=== PATIENT | female | born 1965 | race Caucasian/White ===

== ENCOUNTER 2023-04-29 15:00 | Emergency (ER) | payer OTHER, SELFPAY ==
--- NOTE | 2023-04-29 15:10 | ED.URI ---
HPI - URI/Sore Throat General Chief Complaint: Upper Respiratory Infection Stated Complaint: sorethroat Time Seen by Provider: 04/29/23 15:11 Source: patient Mode of arrival: ambulatory Limitations: no limitations Review of Systems Review of Systems: All systems reviewed & are unremarkable except as noted in HPI and below Constitutional: Constitutional: Denies body ache(s), Denies chills, Denies fatigue, Denies fever(s), Denies headache(s), Denies malaise and Denies weakness Eyes: Eyes: Denies blurry vision, Denies itchy eyes and Denies loss of vision ENT: Denies otalgia, Denies headache(s), Reports nasal congestion, Denies sinus pain and Denies sore throat Cardiovascular: Cardiovascular: Denies chest pain, Denies irregular heart rhythm and Denies dyspnea Respiratory: Respiratory: Reports cough and Denies dyspnea Gastrointestinal: Gastrointestinal: Denies abdominal pain, Denies diarrhea, Denies nausea and Denies vomiting Musculoskeletal: Musculoskeletal: Denies back pain, Denies myalgias and Denies arthralgias Integumentary/Breasts: Skin/Breast: Denies pruritus and Denies rash Neurologic: Denies headache(s), Denies loss of vision and Denies weakness Psychiatric: Psychiatric: Reports no additional psychiatric complaints Endocrine: Endocrine: Denies fatigue Allergic/Immunologic: Allergic/Immunologic: Denies itchy eyes PMFSH Comments At time of signature, agree with nursing past medical, surgical, social and family history. There is no relevant family history pertinent to the presenting complaint. Exam Const: General: cooperative, healthy appearing, comfortable, no acute distress and well nourished Nutritional Appearance: well nourished Orientation/consciousness: patient oriented x3 Limitations: no limitations HENMT: Head: normal to inspection, normocephalic and atraumatic Ears: hearing grossly normal bilaterally, external ears normal, TM's normal bilaterally, EAC's normal and no periauricular adenopathy Face/Nose/Sinus: Normal external nose present, Abnormal mucous membranes and turbinates present erythematous bilateral and diffuse, normal facial exam, sinuses nontender and face symmetric Face and sinus: normal facial exam, sinuses nontender and face symmetric Mouth: Yes Normal oral and palatal mucosa present, Yes lip normal, Yes tongue normal, Yes Normal salivary glands and ducts present, Yes oropharynx normal and Yes moist mucous membranes Teeth and gingiva: dentition normal Throat: posterior oropharynx normal, tonsils normal and uvula midline Eyes: General: appearance normal, both eyes and all related structures Alignment and Position: alignment normal and position normal Periorbital: periorbital findings normal Eyelids: eyelids normal Pupils: Equal, round and reactive pupils present Neck: Neck: normal visual inspection, full ROM, no lymphadenopathy and supple Chest: Chest palpation & inspection: normal inspection of the chest and normal palpation of entire chest wall Resp: Effort & Inspection: normal respiratory effort and able to speak in complete sentences Auscultation: clear to auscultation bilaterally, no crackles, no rales, no rhonchi and no wheezes Cardio: Rate: regular rate Rhythm: regular rhythm Heart sounds: S1 normal heart sound present and S2 normal heart sound present GI: Inspection: normal to inspection Skin: General skin exam: normal color and no rashes or lesions noted Neuro: General: patient oriented x3 and moves all extremities Cranial nerves: Yes Equal, round and reactive pupils present Speech: normal speech Gait exam (Neuro): Normal gait present Extrem: General: normal to inspection, full ROM and no edema Psych: Appearance: grossly normal and well kempt Mental Status: mental status grossly normal Speech and movement: Normal speech and movement present Affect: normal affect Attitude: cooperative Thought process: Normal thought process present Course Course Emergency Course: Scooby
[2023-04-29 15:15] VITALS: BP 159/72; PULSE 67; RESP 18; TEMP 36.9; O2SAT 98
[2023-04-29 15:18] VITALS: BP 159/72; PULSE 67; RESP 18; TEMP 36.9; O2SAT 98
--- NOTE | 2023-04-29 15:33 | ED.SKABFB ---
HPI - Skin/Abscess/Foreign Bdy General Chief complaint: Skin/Abscess/Foreign Body Stated complaint: sorethroat Time Seen by Provider: 04/29/23 15:11 Source: patient Mode of arrival: ambulatory Limitations: no limitations History of Present Illness HPI narrative: Patient is a 57-year-old female that presents with left ear swelling and redness after tick bite. Patient removed tick on Monday evening and has had in a jar since. Take identified as a female [place]ese dog tick. Patient states wound has been using clear/cold in liquid since. Reports ear has become more swollen and tender along with lymph nodes in neck. Denies any fever, chills, congestion, sore throat, fatigue. Has been washing with soap and water and using Neosporin. Related Data Home Medications Medication Instructions Recorded Confirmed ezetimibe 10 mg tablet 10 mg PO DAILY 04/29/23 04/29/23 lisinopril 2.5 mg tablet 2.5 mg PO DAILY 04/29/23 04/29/23 metoprolol succinate 25 mg 25 mg PO DAILY 04/29/23 04/29/23 tablet,extended release 24 hr rosuvastatin 10 mg tablet 10 mg PO DAILY 04/29/23 04/29/23 Allergies Allergy/AdvReac Type Severity Reaction Status Date / Time morphine AdvReac Itching Verified 04/29/23 15:16 Review of Systems Review of Systems: All systems reviewed & are unremarkable except as noted in HPI and below Constitutional: Constitutional: Denies body ache(s), Denies chills, Denies fatigue, Denies fever(s), Denies headache(s), Denies malaise and Denies weakness Eyes: Eyes: Denies blurry vision, Denies irritation and Denies loss of vision ENT: Reports otalgia, Denies headache(s), Denies nasal discharge, Denies sinus pain and Denies sore throat Comments: Ear swelling and redness Cardiovascular: Cardiovascular: Denies chest pain, Denies irregular heart rhythm and Denies dyspnea Respiratory: Respiratory: Denies dyspnea Gastrointestinal: Gastrointestinal: Denies abdominal pain, Denies melena, Denies hematochezia, Denies diarrhea, Denies nausea and Denies vomiting Musculoskeletal: Musculoskeletal: Denies back pain, Denies myalgias and Denies arthralgias Integumentary/Breasts: Skin/Breast: Denies pruritus, Reports lesions and Denies rash Neurologic: Denies headache(s), Denies loss of vision and Denies weakness Psychiatric: Psychiatric: Reports no additional psychiatric complaints Endocrine: Endocrine: Denies fatigue PMFSH Comments At time of signature, agree with nursing past medical, surgical, social and family history. There is no relevant family history pertinent to the presenting complaint. Exam Const: General: cooperative, healthy appearing, comfortable, no acute distress and well nourished Nutritional Appearance: well nourished Orientation/consciousness: patient oriented x3 Limitations: no limitations HENMT: Head: normal to inspection, normocephalic and atraumatic Ears: hearing grossly normal bilaterally, TM's normal bilaterally, EAC's normal, mastoids normal bilaterally not edematous, nontender and no erythema and external ear abnormal auricular tenderness on the left and diffuse, pain with movement of external ear on the left and diffuse and other (Erythema and swelling. Lesion noted with drainage) Outer ear/TM images: 1. Tick bite location. Clear to yellow watery drainage noted. No necrotic tissue present. Entire pinna red and swollen. Face/Nose/Sinus: Normal external nose present, normal facial exam and face symmetric Face and sinus: normal facial exam and face symmetric Mouth: Yes lip normal Eyes: General: appearance normal, both eyes and all related structures Alignment and Position: alignment normal and position normal Periorbital: periorbital findings normal Eyelids: eyelids normal Pupils: Equal, round and reactive pupils present EOM: EOMs intact bilaterally Neck: Neck: normal visual inspection, full ROM and supple Chest: Chest palpation & inspection: normal inspection of the chest Resp: Effort
== END 2023-04-29 16:00 | disposition home or self-care (01) ==
PROVIDERS: Emergency Provider Nurse Practitioner Family
DX: S00.462A Insect bite (nonvenomous) of left ear, initial encounter (principal); W57.XXXA Bitten or stung by nonvenomous insect and other nonvenomous arthropods, initial encounter; E78.00 Pure hypercholesterolemia, unspecified; I10 Essential (primary) hypertension
CPT/HCPCS: 87070; 87205; 99213; G0463

== ENCOUNTER 2023-08-02 10:39 | Day surgery (SDC) | payer OTHER, SELFPAY ==
[2023-08-02] VITALS (14 sets, daily range): BP systolic 111–154; BP diastolic 53–84; PULSE 58–73; RESP 16–18; TEMP 36.2–37.1; O2SAT 94–100; BMI 37.6
--- NOTE | ~2023-08-02 | CT_ITS ---
EXAMINATION: CT abdomen pelvis w con DATE: 08/02/2023 12:01 INDICATION: Right lower quadrant pain TECHNIQUE: Computed tomography (CT) of the abdomen and pelvis was performed without intravenous contr ast. The dose-length product was 1502.96 mGy-cm. Automated exposure control and iterative reconstruct ion technique were employed. COMPARISON: None. FINDINGS: There is bilateral lower lobe atelectasis. Heart size normal. No significant pleural or per icardial effusion. There are gallstones. The liver, spleen, pancreas, adrenal glands and kidneys are unremarkable. The appendix is thickened with surrounding inflammation, consistent with acute appendic itis. Small amount of free fluid in the pelvis. No evidence for perforation or abscess. Mild lumbar s pondylosis. IMPRESSION: 1. Acute uncomplicated appendicitis. Reviewed, dictated and finalized at location B.
[2023-08-02 11:16] LABS: Basophils Percent Auto 0.3 % (0.2-1.2); Eosinophils Percent Auto 0.3 % (0-4.4); Hematocrit 44.8 % (37.0-47.0); Immature Granulocyte Absolute 0.03 K/mm3 (0.00-0.031); Immature Granulocyte Percent A 0.3 % (0-0.5); Lymphocytes Absolute Auto 1.52 K/mm3 (0.9-3.2); Lymphocytes Percent Auto 16.3 % (18.3-44.2); Mean Corpuscular HGB Conc 33.5 g/dl (32-36); Mean Corpuscular Hemoglobin 34.4 pg (26-34); Mean Corpuscular Volume 102.8 fl (80-100); Mean Platelet Volume 10.7 fl (7.4-10.4); Monocytes Absolute Auto 0.4 K/mm3 (0.1-0.6); Monocytes Percent Auto 4.4 % (2.6-8.5); Neutrophils Absolute Auto 7.3 K/mm3 (1.3-6.7); Neutrophils Percent Auto 78.4 % (45.5-73.1); Platelet Count Result 135 k/mm3 (150-375); Red Blood Count 4.36 M/mm3 (4.2-5.4); Red Cell Distribution Width 12.9 % (11.5-14.5); White Blood Count 9.3 K/mm3 (4.5-10.0)
[2023-08-02 11:20] LABS: Appearance Urine Clear (Clear); Bilirubin Urine Negative (Negative); Blood Urine Negative (Negative); Color Urine Yellow (Yellow); Glucose Urine UA Negative (Negative); Ketones Urine Negative (Negative); Leukocyte Esterase Ur Negative LEU/UL (Negative); Nitrate Urine Negative (Negative); Protein Urine Negative (Negative); Specific Grav Ur 1.012 (1.001-1.035); Urobilinogen Urine 0.2 mg/dL (<2.0)
[2023-08-02] MEDS: SODIUM CHLORIDE 0.9% IV 1,000 ML 999 ML IV CONT (11:25)
[2023-08-02] MEDS: ONDANSETRON INJ 4 MG/2 ML VIAL IV PUSH (11:25)
[2023-08-02] MEDS: fentaNYL CITRATE INJ (*CRX) 100 MCG/2 ML VIAL 50 MCG IV PUSH ×3 (11:25→14:30)
[2023-08-02 11:26] LABS: Alanine Aminotransferase 78 U/L (6-35); Albumin Level 4.5 g/dL (3.5-5.1); Alkaline Phosphatase 103 U/L (38-126); Anion Gap 10 mmol/L (8-16); Aspartate Amino Transferase 100 U/L (14-36); Bilirubin,Total 0.8 mg/dL (0.2-1.3); Blood Urea Nitrogen 8 mg/dL (7-17); Calcium 9.7 mg/dL (8.4-10.2); Carbon Dioxide 25 mmol/L (22-30); Chloride 100 mmol/L (98-107); Estimated CRCL calculation 96 ml/min; Estimated Glomerular Filt Rate > 60; Glucose 132 mg/dL (65-110); Lipase 110 U/L (23-300); Potassium 3.8 mmol/L (3.4-5.0); Sodium 135 mmol/L (137-145)
[2023-08-02 11:28] LABS: Add Urine Microscopic? NO
--- NOTE | 2023-08-02 12:18 | ED.ABDPAIN ---
HPI - Abdominal Pain General Chief Complaint: Abdominal Pain Stated Complaint: abd pain Time Seen by Provider: 08/02/23 10:58 History of Present Illness HPI narrative: Patient is a 57-year-old female who presents ER with abdominal pain. Began yesterday. Has worsened today. Cannot move without having discomfort. Sharp and located in the right lower quadrant. No urinary symptoms. No fevers or chills or sweats. No chest pain or chest pressure. No alleviating factors. She does still have an appendix. Related Data Home Medications Medication Instructions Recorded Confirmed ezetimibe 10 mg tablet 10 mg PO DAILY 04/29/23 08/02/23 lisinopril 2.5 mg tablet 2.5 mg PO DAILY 04/29/23 08/02/23 metoprolol succinate 25 mg 25 mg PO DAILY 04/29/23 08/02/23 tablet,extended release 24 hr rosuvastatin 10 mg tablet 10 mg PO DAILY 04/29/23 08/02/23 Allergies Allergy/AdvReac Type Severity Reaction Status Date / Time morphine AdvReac Itching Verified 08/02/23 14:16 Review of Systems Review of Systems: All systems reviewed & are unremarkable except as noted in HPI and below Constitutional: Constitutional: Denies chills, Denies fatigue and Denies fever(s) Cardiovascular: Cardiovascular: Denies chest pain, Denies rapid heart rate and Denies radiating jaw, neck or arm pain Respiratory: Respiratory: Denies cough, Denies dyspnea and Denies wheezing Gastrointestinal: Gastrointestinal: Reports abdominal pain, Denies diarrhea, Denies nausea and Denies vomiting Genitourinary: Genitourinary: Reports no additional female genitourinary complaints [facility] Past Medical History Medical History History of coronary artery disease Hyperlipidemia Hypertension Obesity (BMI 30-39.9) Surgical History Surgical History Hx of CABG Family History Family History Other No pertinent family history Social History Social History Smoking status: Never smoker Alcohol intake: current Alcohol use details: Drinks on the weekend about 13 beers per weekend Substance use: never Current Housing: I Have Housing Living arrangements: with family Occupation/Education: unemployed Spiritual care concerns: No Exam Narrative: GENERAL: Well-appearing, well-nourished, and in no acute distress. HEAD: Normocephalic, atraumatic. EYES: PERRL and EOMI. ENT: Mucous membranes moist. CHEST: Clear to auscultation. No respiratory distress. HEART: Regular rate and rhythm. Normal peripheral pulses. ABDOMEN: Soft, tender to palpation right lower quadrant with guarding, nondistended. EXTREMITIES: Normal range of motion. No edema. SKIN: Warm, dry, no rash. NEURO: Alert and oriented x3. PSYCH: Normal mood and affect. Course Course Emergency Course: 1318: Patient aware of diagnosis and treatment plan. I discussed with Dr. Argueta and patient will go to the OR. Patient has been n.p.o. since last night. Pain control with fentanyl. Patient started on Zosyn. Vital Signs Vital signs: Vital Signs Temperature 97.6 F 08/02/23 10:55 Pulse Rate 69 08/02/23 10:55 Respiratory Rate 16 08/02/23 10:55 Pulse Oximetry 99 08/02/23 10:55 Oxygen Delivery Room Air 08/02/23 10:55 Temperature 98.8 F 08/02/23 16:13 Pulse Rate 58 L 08/02/23 17:55 Respiratory Rate 16 08/02/23 17:55 Blood Pressure 115/62 08/02/23 17:55 Pulse Oximetry 95 08/02/23 17:02 Oxygen Delivery Room Air 08/02/23 17:55 Oxygen Flow Rate 8 08/02/23 16:25 MDM - Abdominal Pain Lab Data 08/02/23 11:08 08/02/23 11:07 Labs: Lab Results 08/02/23 08/02/23 Range/Units 11:07 11:08 WBC 9.3 (4.5-10.0) K/mm3 RBC 4.36 (4.2-5.4) M/mm3 Hgb 15.0 (12.0-15.0) g/dL Hct 44.8 (37.0-47.0) % MCV
[2023-08-02] MEDS: PIPERACILLN/TAZ 3.375GM/NS50ML 3.375 GM/50 ML BAG IVPB (12:34)
--- NOTE | 2023-08-02 13:51 | PM.IMHP ---
H&P: HPI History of Present Illness Date/Time: 08/02/23 13:51 Chief Complaint: Right lower quadrant abdominal pain Narrative: This is a 57-year-old woman who presented to the ER today for right lower quadrant abdominal pain x1 day. She reports onset of pain around 2:00 p.m. yesterday that progressively became worse. Her pain is aggravated by bending and any movement. Alleviating factors. Reports associated nausea, dry heaving, and chills. Denies fever, change in bowel habits, or any other complaint at this time. In the ER, labs showed a normal white blood cell count. Urinalysis negative. CT scan of the abdomen and pelvis showed acute uncomplicated appendicitis with appendicolith. Our service was contacted by the ED physician for surgical evaluation of acute appendicitis. She is now seen in the ER. She is still having a significant amount of right lower quadrant abdominal pain. She was given 1 dose of IV Zosyn in the ER. No previous abdominal surgeries. She has a remote history of coronary artery disease status post 2-vessel CABG about 13 years ago. She additionally reports taking amoxicillin for a dental infection. She had called her dentist and has been taking the antibiotic for about 5 days. She is scheduled to see an oral surgeon in December. Review of Systems Review of Systems: All systems reviewed & are unremarkable except as noted in HPI and below Constitutional: Constitutional: Reports no additional constitutional complaints, Reports chills, Denies fatigue, Denies fever(s) and Denies weakness Eyes: Eyes: Reports no additional eye complaints ENT: Reports system reviewed and no additional complaints, except as documented and Denies dizziness Cardiovascular: Cardiovascular: Reports no additional cardiovascular complaints, Denies chest pain and Denies leg edema Respiratory: Respiratory: Reports no additional respiratory complaints, Denies cough and Denies dyspnea Gastrointestinal: Gastrointestinal: Reports as per HPI, Reports no additional gastrointestinal complaints, Reports abdominal pain, Denies melena, Denies hematochezia, Denies change in bowel habits, Denies change in stool character, Reports nausea and Denies vomiting Genitourinary: Genitourinary: Reports no additional female genitourinary complaints Musculoskeletal: Musculoskeletal: Reports no additional musculoskeletal complaints, Denies abnormal gait and Denies joint swelling Integumentary/Breasts: Skin/Breast: Reports system reviewed and no additional complaints, except as docu Neurologic: Reports system reviewed and no additional complaints, except as documented, Denies headache(s), Denies focal weakness, Denies numbness and Denies tingling PMFSH Past Medical History Medical History History of coronary artery disease Hyperlipidemia Hypertension Obesity (BMI 30-39.9) Surgical History Surgical History Hx of CABG Family History Family History Other No pertinent family history Social History Social History Smoking status: Never smoker Alcohol intake: current Alcohol use details: Drinks on the weekend about 13 beers per weekend Substance use: never Current Housing: I Have Housing Living arrangements: with family Occupation/Education: unemployed Meds Home Medications and Allergies Home Medications Medication Instructions Recorded Confirmed Type doxycycline monohydrate 100 mg 100 mg PO BID 10 days #20 tabs 04/29/23 Rx tablet ezetimibe 10 mg tablet 10 mg PO DAILY 04/29/23 04/29/23 History lisinopril 2.5 mg tablet 2.5 mg PO DAILY 04/29/23 04/29/23 History metoprolol succinate 25 mg 25 mg PO DAILY 04/29/23 04/29/23 History tablet,extended release 24 hr mupirocin 2 % topical ointment 1 applic topical
--- NOTE | 2023-08-02 14:29 | ECG_ITS ---
Measurements Intervals [place] Rate: 56 P: 8 MO: 155 QRS: -15 QRSD: 88 T: 33 QT: 427 QTc: 414 Interpretive Statements SINUS BRADYCARDIA LOW QRS VOLTAGE IN PRECORDIAL LEADS INFERIOR INFARCT, AGE INDETERMINATE BORDERLINE ST ABNORMALITY- ANTEROLAT/HIGH LAT LEADS BASELINE ARTIFACT- II, III, AVR, AVL, AVF ABNORMAL ECG NO PREVIOUS ECG AVAILABLE FOR COMPARISON Electronically Signed On 08-02-2023 15:15:32 CDT by Shalom Wilson D.O.
[2023-08-02] MEDS: LACTATED RINGERS 1,000 ML 30 ML IV CONT ×2 (14:30→16:13)
--- NOTE | 2023-08-02 14:43 | WPDANESEPPF ---
Anes - Initial Pre Proc Eval Procedure: Operation Date: 08/02/23 15:00 Proposed Procedures p Laparoscopic Appendectomy, Possible Open - Adam Argueta MD Date/Time: 08/02/23 14:43 Surgeon: Adam Argueta MD Pre Op Diagnosis: abd pain Patient Data Age: 57 Gender: F Height: 1.7 m Weight: 109 kg Last Vital Signs Temp 36.2 C L 08/02/23 14:16 Pulse 63 08/02/23 14:16 Resp 16 08/02/23 14:16 BP 136/59 L 08/02/23 14:16 Pulse Ox 98 08/02/23 14:16 O2 Del Method Room Air 08/02/23 14:16 Allergies Allergy/AdvReac Type Severity Reaction Status Date / Time morphine AdvReac Itching Verified 08/02/23 14:16 Home Medications Medication Instructions Recorded Confirmed Type doxycycline monohydrate 100 mg 100 mg PO BID 10 days #20 tabs 04/29/23 08/02/23 Rx tablet ezetimibe 10 mg tablet 10 mg PO DAILY 04/29/23 08/02/23 History lisinopril 2.5 mg tablet 2.5 mg PO DAILY 04/29/23 08/02/23 History metoprolol succinate 25 mg 25 mg PO DAILY 04/29/23 08/02/23 History tablet,extended release 24 hr mupirocin 2 % topical ointment 1 applic topical BID #15 grams 04/29/23 08/02/23 Rx rosuvastatin 10 mg tablet 10 mg PO DAILY 04/29/23 08/02/23 History Laboratory Tests 08/02/23 08/02/23 11:07 11:08 WBC 9.3 K/mm3 (4.5-10.0) RBC 4.36 M/mm3 (4.2-5.4) Hgb 15.0 g/dL (12.0-15.0) Hct 44.8 % (37.0-47.0) MCV 102.8 H fl (80-100) MCH 34.4 H pg (26-34) MCHC 33.5 g/dl (32-36) RDW 12.9 % (11.5-14.5) Plt Count 135 L k/mm3 (150-375) MPV 10.7 H fl (7.4-10.4) Immature Gran % (Auto) 0.3 % (0-0.5) Neut % (Auto) 78.4 H % (45.5-73.1) Lymph % (Auto) 16.3 L % (18.3-44.2) [place] % (Auto) 4.4 % (2.6-8.5) Eos % (Auto) 0.3 % (0-4.4) Baso % (Auto) 0.3 % (0.2-1.2) Lymph # (Auto) 1.52 K/mm3 (0.9-3.2) [place] # (Auto) 0.4 K/mm3 (0.1-0.6) Eos # (Auto) 0.0 K/mm3 (0-0.3) Baso # (Auto) 0.0 K/mm3 (0.0-0.1) Abs Immat Gran (auto) 0.03 K/mm3 (0.00-0.031) Absolute Neuts (auto) 7.3 H K/mm3 (1.3-6.7) Absolute Nucleated RBC 0.0 K/mm3 (0.0-0.012) Nucleated RBC % 0.0 % (0.0-0.2) Sodium 135 L mmol/L (137-145) Potassium 3.8 mmol/L (3.4-5.0) Chloride 100 mmol/L (98-107) Carbon Dioxide 25 mmol/L (22-30) Anion Gap 10 mmol/L (8-16) BUN 8 mg/dL (7-17) Creatinine 0.70 mg/dL (0.7-1.0) Estim Creat Clear Calc 96 ml/min Estimated GFR > 60 (59 - ) Glucose 132 H mg/dL (65-110) Calcium 9.7 mg/dL (8.4-10.2) Total Bilirubin 0.8 mg/dL (0.2-1.3) AST 100 H U/L (14-36) ALT 78 H U/L (6-35) Alkaline Phosphatase 103 U/L (38-126) Total Protein 9.0 H g/dL (6.3-8.2) Albumin 4.5 g/dL (3.5-5.1) Lipase 110 U/L (23-300) Urine Color Yellow (Yellow) Urine Appearance Clear (Clear) Urine pH 7.0 (5.0-9.0) Ur Specific [place] 1.012 (1.001-1.035) Urine Protein Negative mg/dL (Negative) Urine Glucose (UA) Negative mg/dL (Negative) Urine Ketones Negative mg/dL (Negative) Ur Blood (Man) Negative (Negative) Urine Nitrate Negative (Negative) Urine Bilirubin Negative (Negative) Urine Urobilinogen 0.2 mg/dL (<2.0) Leukocyte Esterase Rfl Negative CELINE/UL (Negative) Patient hx anesthesia problems: none Family hx anesthesia problems: none Results Review: All pre-operative results and documents have been reviewed as part of the pre-operative evaluation. [facility] Past Medical History Medical History History of coronary artery disease Hyperlipidemia Hypertension Obesity (BMI 30-39.9) Surgical History Surgical History (Reviewed 08/02/23 @ 14:43 by Khai
--- NOTE | 2023-08-02 15:05 | WPDHPUPDATE1 ---
History and Physical Update Update Date/Time: 08/02/23 15:05 History and Physical has been reviewed, including an updated exam of the patient. There are NO changes in the patient's condition. Risks, benefits, and alternatives have been discussed and questions answered. Patient agrees to proceed with procedure.
[2023-08-02] MEDS: KETOROLAC 15 MG/ML VIAL (*BKC) IV PUSH (15:55)
[2023-08-02] MEDS: LIDO 1%/EPINEPHRINE 1:100,000 20 ML VIAL INFILTRATE (15:56)
[2023-08-02] MEDS: fentaNYL CITRATE INJ (*CRX) 100 MCG/2 ML VIAL 25 MCG IV PUSH ×2 (16:19→16:23)
--- NOTE | 2023-08-02 16:21 | W.PM.PROC2 ---
Procedure Note - Detailed Date of Procedure 08/02/23 Pre-op Diagnosis Acute appendicitis Post-op Diagnosis Same Procedure Performed Laparoscopic appendectomy Surgeon Adam Argueta MD [employer] MIRANDA Lind Anesthesia General Indications Patient is a 57-year-old female presents to emergency room with severe right lower quadrant abdominal pain occurring for about the last 12hours. She had normal white blood cell count and was hemodynamically stable in the emergency room. CT scan abdomen pelvis was performed showing a inflamed and dilated appendix with an appendicolith within the lumen of the appendix. No perforation or periappendiceal abscess was seen. Findings The appendix and the distal 1/2 was inflamed. The proximal 1/2 the appendix appeared relatively normal. The base was normal. Periappendiceal inflammation was noted but no evidence of abscess and no gangrene the appendix. No perforation of the appendix. Description of Procedure After informed consent was obtained patient brought to the operating room she was placed supine position and then general endotracheal anesthesia was administered. A [place] catheter was placed to decompress the bladder. The abdomen was then prepped and draped in usual sterile fashion. A time-out was then performed correctly identifying the patient as well as procedure to be performed. She was already getting antibiotics IV in the emergency room. I started the procedure by placing a 5mm Optiview port in left upper quadrant with a direct optical insertion. Once inside the abdomen insufflated to adequate pneumoperitoneum of 15mmHg of CO2. Then placed a 12mm periumbilical trocar port as well as a 5mm suprapubic trocar port and a 5mm right lower quadrant trocar port all under direct visualization. The appendix was visualized in the right lower quadrant the abdomen lateral to the cecum. It was acutely inflamed with periappendiceal inflammation of the fat but no perforation of the appendix or periappendiceal abscess. The distal 1/2 the appendix was inflamed but the proximal 1/2 and the base of the appendix was normal appearing. Using laparoscopic instruments I was able to dissect down free up the appendix from the surrounding subcutaneous tissues. I then made a defect through the mesoappendix just at the base with a [place] dissector. A 45mm Endo-RUSS stapler was then used to divide the appendix flush with the cecum. A vascular reload to the Endo-RUSS stapler was then used to divide the mesoappendix. The appendix was then placed into an Endo-Catch bag and brought out through the periumbilical trocar port site. It was passed off table sent to pathology for examination. I then irrigated out the right lower quadrant the abdomen and the pelvis. Hemostasis on the staple lines was good. I then removed all the trocar ports under visualization all port sites appeared hemostatic. The abdomen was allowed to decompress. The 12mm periumbilical trocar port fascial defect was then closed utilizing 0 Vicryl suture placed in a figure-eight fashion. The skin edges in all the port sites were then approximated utilizing a running subcuticular 4-0 Monocryl suture. The incisions were then cleaned the skin glue was applied. The patient tolerated the procedure well no complications. All sponges, needles, and instrument counts were correct at the end procedure. EBL was _15__cc. The patient was awakened and taken to recovery in stable and satisfactory condition. The [place] catheter was removed at the end the procedure. Implants None Estimated Blood Loss -15.0 Drains No Packing No Pathology Yes (Appendix to pathology) Complications No immediate complications Condition Stable Disposition PACU [facility] Billing Surgery - Charge Forward: Surgery Billing
--- NOTE | 2023-08-02 16:28 | PM.DS ---
DS: Admitting Diagnosis Discharge Date August 02, 2023 Admitting Diagnosis Acute appendicitis DS: Discharge Diagnosis Discharge Diagnosis (1) Acute appendicitis: Qualifiers: Acute appendicitis type: unspecified acute appendicitis type Qualified Code(s): K35.80 - Unspecified acute appendicitis Code(s): K35.80 - Unspecified acute appendicitis Status: Acute Assessment and Plan: Patient had a laparoscopic appendectomy and is doing well postoperatively. She has been discharged home today. DS: Summary Hospital Course Reason for hospitalization: Acute appendicitis Hospital Course: Patient was initially seen in the emergency room where she presented with a 12hour history of worsening right lower quadrant abdominal pain. She was hemodynamically stable in the emergency room and a CT scan abdomen pelvis was performed. The CT showed a dilated and inflamed appendix with an appendicolith within the lumen of the appendix. There is no perforation of the appendix or periappendiceal abscess. White blood cell count was normal. She was given IV antibiotics and IV fluids in the emergency room. He was then taken emergently to the operating room from the emergency room where she underwent uncomplicated laparoscopic appendectomy. Operative findings can be found in the operative note. Patient did very well and was transferred to the recovery room after the surgery. She did very well in the recovery room and then was taken outpatient surgery area. The outpatient surgery area she was able to taking some clear liquids and some crackers. Controlled with oral pain medications. As the appendix was not perforated and there is no periappendiceal abscess and white blood cell count was normal I felt she be discharged from the outpatient surgery area not need to be admitted to the hospital for further IV antibiotics. She was discharged home in improved condition on the same day as her laparoscopic appendectomy from the outpatient surgery area. Status at Discharge Functional status at discharge: independent ambulation Overall status at discharge: patient is progressing back to baseline Time Spent with Patient Time attestation: Total time spent providing and/or coordinating discharge services: Time spent: Less than 30 minutes Exam Const: General: cooperative, healthy appearing and comfortable Chest: Chest palpation & inspection: normal inspection of the chest Resp: Effort & Inspection: normal respiratory effort Cardio: Rate: regular rate Rhythm: regular rhythm GI: Other: Abdomen is soft and nondistended. Port site incisions are closed with skin glue is no redness or bleeding. Expected mild tenderness around the incision is noted but no peritoneal signs are noted. Neuro: General: patient oriented x3 Cranial nerves: Yes CN's II-XII intact bilaterally Motor exam (neuro): 5/5 motor strength present throughout and Normal motor muscle tone present throughout Sensory Exam: normal sensation Extrem: General: normal to inspection and full ROM Psych: Appearance: grossly normal and well kempt Speech and movement: Normal speech and movement present Thought process: Normal thought process present Judgement: Good judgement present (Psych) DS: Data Data Completed and Pending Pending studies at discharge: Pending at discharge 08/02/23 14:55 Surgical [PTH] Routine Labs on day of discharge: Labs from last 24 hours 08/02/23 08/02/23 11:08 11:07 WBC 9.3 RBC 4.36 Hgb 15.0 Hct 44.8 MCV 102.8 H MCH 34.4 H MCHC 33.5 RDW 12.9 Plt Count 135 L MPV 10.7 H Immature Gran % (Auto) 0.3 Neut % (Auto) 78.4 H Lymph % (Auto) 16.3 L Placer % (Auto) 4.4 Eos % (Auto) 0.3 Baso % (Auto) 0.3 Lymph # (Auto) 1.52 Placer # (Auto) 0.4 Eos # (Auto) 0.0 Baso # (Auto) 0.0 Abs Immat Gran (auto) 0.03 Absolute Neuts (auto) 7.3 H Absolute Nucleated RBC 0.0 Nucleated RBC % 0.0 Sodiu
== END 2023-08-02 16:05 | disposition home or self-care (01) ==
LOC: ANHED 13:18 → ANHSURGERY 13:33
PROVIDERS: Emergency Provider Emergency Medicine; Visit Provider Surgery
PROC: 0DTJ4ZZ Resection of Appendix, Percutaneous Endoscopic Approach (ICD-10-PCS; CPT 44970; principal; 2023-08-02 15:00)
DX: K35.80 Unspecified acute appendicitis (principal); I10 Essential (primary) hypertension; I25.10 Atherosclerotic heart disease of native coronary artery without angina pectoris; E78.5 Hyperlipidemia, unspecified; Z95.1 Presence of aortocoronary bypass graft; E66.9 Obesity, unspecified; Z68.37 Body mass index [BMI] 37.0-37.9, adult
CPT/HCPCS: 44970; 36415; 74177; 80053; 81003; 81025; 83690; 85025; 88304; 93005; J0330; J1100; J1885; J2250; J2405; J2543; J2704; J3010; J7030; J7120; Q9967

== ENCOUNTER 2024-01-25 10:45 | Outpatient (CLI) | payer OTHER, SELFPAY ==
--- NOTE | ~2024-01-25 | US_ITS ---
EXAMINATION: US soft tissue UE RT DATE: 01/25/2024 11:21 INDICATION: Enlarging painful lump at the right upper arm. TECHNIQUE: Multiple grayscale and Doppler ultrasound images of the region of concern at the right upp er arm were obtained. COMPARISON: None FINDINGS: There is an 11 x 9 x 9 mm very hypoechoic nodule with smooth well-defined peripheral margins which is located in the superficial subcutaneous tissues at the region of concern, extending to within 1 mm o f the skin surface. There appears be a small amount of internal vascular flow on color Doppler. IMPRESSION: 1. Nonspecific 11 mm superficial subcutaneous nodule at the region of concern with internal vascular flow on color Doppler suggesting nonspecific neoplasm which could be either benign or malignant. Coul d consider ultrasound-guided core needle biopsy. Reviewed, dictated and finalized at location A. IMPRESSION: 1. Nonspecific 11 mm superficial subcutaneous nodule at the region of concern w ith internal vascular flow on color Doppler suggesting nonspecific neoplasm whi ch could be either benign or malignant. Could consider ultrasound-guided core n eedle biopsy.
== END 2024-01-25 10:46 ==
PROVIDERS: PCP Nurse Practitioner Family; Visit Provider Nurse Practitioner Family
DX: R22.31 Localized swelling, mass and lump, right upper limb (principal)
CPT/HCPCS: 76882

== ENCOUNTER 2024-02-16 08:51 | Outpatient (CLI) | payer OTHER, SELFPAY ==
--- NOTE | ~2024-02-16 | US_ITS ---
EXAMINATION: US biopsy st muscle DATE: 02/16/2024 09:52 INDICATION: Right upper limb mass. TECHNIQUE: The procedure including the risks, benefits, and alternatives was discussed with the patie nt. Risks discussed included bleeding and infection. The patient understood the risks and agreed to p roceed. The skin overlying the right upper limb was prepped and draped in usual sterile fashion. Ane sthetic was administered with 1% lidocaine subcutaneously. An 18 gauge core biopsy needle was then u sed to obtain 3 core biopsy specimens under continuous sonographic guidance. The entry site was clean ed and dressed. There were no immediate complications. FINDINGS: Ultrasound images demonstrate the needle in a 10 mm hypoechoic subcutaneous mass in right u pper arm.. IMPRESSION: 1. Ultrasound-guided core needle biopsy a 10 mm subcutaneous mass in right upper arm. Reviewed, dictated and finalized at location A. IMPRESSION: 1. Ultrasound-guided core needle biopsy a 10 mm subcutaneous mass in right uppe r arm.
== END 2024-02-16 08:52 | disposition home or self-care (01) ==
PROVIDERS: PCP Nurse Practitioner Family; Visit Provider Nurse Practitioner Family
DX: R22.31 Localized swelling, mass and lump, right upper limb (principal)
CPT/HCPCS: 20206; 76942; 88305; 88342

== ENCOUNTER 2024-03-11 00:53 | Day surgery (SDC) | payer OTHER, SELFPAY ==
[2024-03-05 10:17] VITALS: BMI 40.7
--- NOTE | 2024-03-05 10:29 | SUR.PREOP ---
Report to the Outpatient Waiting Room, entrance under the green pavilion located off [facility], at time 0800 on date 03/11/24. Planned Procedure Time: 0900. Time changes happen often and if your time is changed the preop area will call you the afternoon before. - You and your visitor will be asked to self-screen and do not enter if you have any COVID symptoms. - A mask is optional within the hospital at this time. Patients may have clear liquids (water, carbonated beverages, clear teas, apple juice) until 3 hours prior to surgery with a maximum of 20 ounces. - No food from midnight until time of surgery light breakfast - Infants may have breast milk until 4 hours before surgery, infant formula 6 hours prior to surgery. - Children will be allowed to drink immediately following surgery. If applicable, please bring a bottle or sippy cup to assist with drinking. Juice, water, soda, and popsicles are readily available. For infants on formula, please bring formula the day of surgery. Pacifiers are allowed. Take the following medications with a SIP of water the morning of surgery: ____may take morning medications____ DO NOT STOP ANY OF YOUR OTHER PRESCRIPTION MEDICATIONS PRIOR TO SURGERY ?EXCEPT THE FOLLOWING Medications to discontinue per physician ____hold Aspirin if directed by DR. Argueta's office. pt to call Date to take last dose Please no make-up, nail bruneian, hairspray, perfume, deodorant, or body powder the day of surgery. No jewelry (including any body piercings) or valuables the day of surgery, leave them at home. Please take a shower or bath the night before, or the morning of, surgery with an antibacterial soap. Wear comfortable, loose fitting clothing. Children are encouraged to wear pajamas. - Jewelry must be removed prior to entering the operating room. Rings and piercings that are not removed may be cut off. - The hospital will not accept responsibility for valuables. - Please leave all valuables, including medications, at home the day of surgery. If you are going home after surgery, a licensed customer service driver must drive you home. - NO public transportation without another adult if you receive anesthesia. - We recommend that an adult stay with you for 24 hours following discharge. - We also recommend that you do not drive, make important decision, drink alcoholic beverages, or take any drugs that were not prescribed by your health care provider for at least 24 hours after your discharge time. For Pediatric surgeries, we recommend two adults accompany the child home. Follow any additional instructions given to you from your surgeon. If you or anyone in your household have experienced Covid symptoms in the past week, please notify your surgeon or the nurse liaison at the phone number below for possible testing. Telephone instructions given to _patient__and asked if any additional questions and then verbalized understanding. Patient advised to call surgeon office or pre surgery nurse liaison [phone] if any additional questions.
--- NOTE | 2024-03-11 09:20 | SUR.PREOP ---
PATIENT NOTIFIED OF SURGERY START DELAY
--- NOTE | 2024-03-11 09:36 | WPDHPUPDATE1 ---
History and Physical Update Update Date/Time: 03/11/24 09:36 History and Physical has been reviewed, including an updated exam of the patient. There are NO changes in the patient's condition. Risks, benefits, and alternatives have been discussed and questions answered. Patient agrees to proceed with procedure.
[2024-03-11 10:02] VITALS: BP 167/84; PULSE 65; RESP 16; O2SAT 99
[2024-03-11] MEDS: BUPivacaine HCL 0.5% 10 ML AMP 30 ML INFILTRATE (10:08)
[2024-03-11] MEDS: LIDO 1%/EPINEPHRINE/PF 1:200,000 30 ML VIAL XX (10:09)
[2024-03-11 10:12] VITALS: BP 167/83; PULSE 64; RESP 16; O2SAT 100
[2024-03-11 10:22] VITALS: BP 163/91; PULSE 63; RESP 16; O2SAT 100
[2024-03-11 10:30] VITALS: BP 162/87; PULSE 62; RESP 16; O2SAT 100
[2024-03-11 10:35] VITALS: BP 131/75; PULSE 64; RESP 16
--- NOTE | 2024-03-11 10:50 | W.PM.PROC2 ---
Procedure Note - Detailed Date of Procedure 03/11/24 Pre-op Diagnosis Rt Upper Arm Leiomyoma Post-op Diagnosis Same Procedure Performed Excision right upper arm leiomyoma with 5cm intermediate layered wound closure Surgeon Adam Argueta MD Anesthesia Local Indications Patient is a 35-year-old female who presented with a slowly enlarging subcutaneous mass in her lateral right upper arm. It was painful to touch. Isn't present for about 15 years. She did have a needle biopsy of the mass prior to presenting to my office and it looks to be a benign leiomyoma. She presents now for excision of the whole leiomyoma. Findings The leiomyoma was approximately 1.1t9x7pi. There was a 5cm intermediate layered wound closure. The mass was completely confined within the subcutaneous tissues. Description of Procedure After informed consent was obtained patient brought to the operating room she was placed supine on operating table. The right upper lateral arm above the elbow was then prepped and draped usual sterile fashion and was laid across her chest. Time-out was then performed correctly identifying the patient as well as procedure to be performed verifying the site marking. No IV was started and so no IV antibiotics were given. I then anesthetized the area around the mass utilizing 1% lidocaine mixed with 0.5% Marcaine with some epinephrine. It was injected around the mass for local anesthetic effect. I then made a vertical elliptical incision around the mass in the skin. Dissection was then carried down through the dermis of the skin with a scalpel and then into the subcutaneous tissues with electrocautery. I excised out the whole mass and the attached ellipse skin overlying the mass. The mass did not extend to the muscle or fascia. It was completely confined within the subcutaneous tissues. Once the mass was completely excised out and measured as approximately 1.4l1x3ht. A suture was placed on the medial margin of the mass and was sent to pathology for examination. I then achieved hemostasis in the wound electrocautery. It was then irrigated sterile saline solution hemostasis was good. And intermediate layered wound closure was then performed measuring 5cm in length. Interrupted 2-0 and 3-0 Vicryl sutures were placed in subcutaneous tissues. The skin edges were then approximated utilizing a running subcuticular 4-0 Monocryl suture. Incision was then cleaned the skin glue a sterile dressing was applied. The patient tolerated the procedure well no complications. All sponges, needles, and instrument counts were correct at the end procedure. EBL was _5__cc. The patient was awakened and taken to recovery in stable and satisfactory condition. Implants None Estimated Blood Loss 5 Drains No Packing No Pathology Yes (Leiomyoma contain within subcutaneous tissues and attached skin subcutaneous tissue was sent to pathology) Complications No immediate complications Condition Stable Disposition PACU [facility] Billing Surgery - Charge Forward: Surgery Billing
== END 2024-03-11 11:00 | disposition home or self-care (01) ==
PROVIDERS: PCP Nurse Practitioner Family; Visit Provider Surgery
PROC: (CPT 24075; principal; 2024-03-11 09:00)
DX: D21.11 Benign neoplasm of connective and other soft tissue of right upper limb, including shoulder (principal); I10 Essential (primary) hypertension; E78.5 Hyperlipidemia, unspecified; I25.2 Old myocardial infarction; I25.10 Atherosclerotic heart disease of native coronary artery without angina pectoris; Z95.1 Presence of aortocoronary bypass graft; Z87.891 Personal history of nicotine dependence; Z79.82 Long term (current) use of aspirin
CPT/HCPCS: 24075; 88304

== ENCOUNTER 2024-03-27 15:31 | Outpatient (CLI) | payer OTHER, SELFPAY ==
--- NOTE | ~2024-03-27 | MM_ITS ---
EXAMINATION: MM screening rosalinda BI w reilly HISTORY: Screening TECHNIQUE: Craniocaudal and mediolateral oblique 3-D tomosynthesis images were obtained and synthetic 2-D images were generated. CAD analysis was submitted and interpreted. COMPARISON: No prior mammogram is available for comparison at this institution. BREAST PARENCHYMAL COMPOSITION: The breasts are almost entirely fatty. FINDINGS: There is no evidence of suspicious mass, calcification, or architectural distortion to sugg est malignancy in either breast. There has been no suspicious interval change. IMPRESSION: 1. No mammographic evidence of malignancy. 2. Recommend routine screening mammography in one year. BI-RADS Category 1: Negative Reviewed, dictated and finalized at location A.
== END 2024-03-27 15:32 ==
LOC: MICIMG 15:31
PROVIDERS: PCP Nurse Practitioner Family; Visit Provider Nurse Practitioner Family
DX: Z12.31 Encounter for screening mammogram for malignant neoplasm of breast (principal)
CPT/HCPCS: 77063; 77067